=== PATIENT | male | born 1945 | race Caucasian/White ===

== ENCOUNTER → 2018-06-10 11:13 | Outpatient (CLI) | payer MEDICARE, MEDICAID | END | disposition home or self-care (01) | LOC: D.MRI 11:13 | DX: M54.12 Radiculopathy, cervical region (principal) ==

== ENCOUNTER → 2018-06-26 08:47 | Outpatient (CLI) | payer MEDICARE | END | disposition home or self-care (01) | LOC: D.NM 08:47 | DX: Z85.46 Personal history of malignant neoplasm of prostate (principal) ==

== ENCOUNTER → 2018-07-08 12:58 | Outpatient (CLI) | payer MEDICARE | END | disposition home or self-care (01) | LOC: D.MRI 12:58 | PROVIDERS: ATTEND Orthopaedic Surgery | DX: M54.16 Radiculopathy, lumbar region (principal) ==